=== PATIENT | male | born 1985 | race African-American/Black ===

== ENCOUNTER 2024-03-07 00:54 | Emergency (ER) | payer OTHER ==
[2024-03-07 01:02] VITALS: BP 126/88; PULSE 76; RESP 18; TEMP 98.8; BMI 26.7
[2024-03-07] MEDS ORDERED: ACETAMINOPHEN 325 MG TABLET (FP) ONE (01:51)
[2024-03-07] MEDS ORDERED: MECLIZINE HCL 25 MG TABLET (FP) ONE ×2 (01:51→01:52)
[2024-03-07] MEDS: ACETAMINOPHEN 325 MG TABLET (FP) PO ONE (01:55)
[2024-03-07] MEDS: MECLIZINE HCL 25 MG TABLET (FP) PO ONE (01:55)
[2024-03-07] MEDS ORDERED: IBUPROFEN 600 MG TABLET (FP) PO ONE (03:18)
[2024-03-07] MEDS: IBUPROFEN 600 MG TABLET (FP) PO ONE (03:20)
== END 2024-03-07 03:21 | disposition home or self-care (01) ==
LOC: JER 00:54
DX: S09.90XA Unspecified injury of head, initial encounter (principal); M54.2 Cervicalgia; R42 Dizziness and giddiness; H53.9 Unspecified visual disturbance; Y04.8XXA Assault by other bodily force, initial encounter; Y99.0 Civilian activity done for income or pay
CPT/HCPCS: 70450-TC; 99284-25